=== PATIENT | male | born 1990 | race Caucasian/White ===

== ENCOUNTER 2017-09-21 13:12 | Emergency (ER) | payer SELFPAY ==
[~2017-09-21] VITALS: Ht 180.3 cm; Wt 68.0 kg
[2017-09-21 13:14] VITALS: BP 118/71; PULSE 70; RESP 18; TEMP 98.5; O2SAT 100
[2017-09-21] MEDS ORDERED: MAGICADU2 SWISH-SPIT (13:31)
[2017-09-21] MEDS ORDERED: PENI500T PO (13:31)
[2017-09-21] MEDS ORDERED: IBUP1TAB7 PO (13:32)
--- NOTE | 2017-09-21 13:36 | PD ---
HPI Chief Complaint: Oral / Dental Pain or Problem Time Seen by Provider: 13:27 Travel History International Travel<30 days: No Contact w/Intl Traveler<30days: No Traveled to known affect area: No History of Present Illness HPI 27-year-old male presents for evaluation of dental pain. Symptoms are yesterday. Pain is a throbbing pain which is constant, localized to left maxillary first premolar, worse when chewing, unrelieved with salt water gargles. He reports that he has had issues with all of his teeth for quite some time. In the past he has seen a dentist and told that he required all of his teeth to be extracted and that he would need dentures Albin he cannot afford the surgery. His pain is exacerbated after yesterday biting into a fork accidentally and part of his decayed tooth broke off. He has no other complaints at this time. PFSH Past Medical History Medical History: Denies Significant Hx Tetanus Vaccination: Unknown Past Surgical History Surgical History: No Previous Surgery Social History Alcohol Use: No Tobacco Use: No Substance Use: No Allergies-Medications (Allergen,Severity, Reaction): Coded Allergies: Sulfa (Sulfonamide Antibiotics) (Verified Allergy, Unknown, 09/21/17) Reported Meds & Prescriptions Reported Meds & Active Scripts Active Ibuprofen 800 Mg Tab 800 Mg PO Q6HR PRN Magic Mouthwash Adult Liq (Multi-Ingredient Mouthwash/Gargle) 120 Ml Susp 10 Ml SWISH-SPIT ACHS Each 5mL contains: Nystatin 200,000units, Diphenhydramine 4.25mg, Viscous Lidocaine 10mg, Ray syrup 0.8 mL Penicillin V Potassium 500 Mg Tab 500 Mg PO Q8H 10 Days Review of Systems General / Constitutional: No: Fever, Chills HENT: Positive: Dental Difficulties Physical Exam Narrative GENERAL: Well-developed well-nourished male in no acute distress SKIN: Warm and dry. HEAD: Atraumatic. Normocephalic. EYES: Pupils equal and round. No scleral icterus. No injection or drainage. ENT: No nasal bleeding or discharge. Mucous membranes pink and moist. All of the patient's teeth are in advanced stages of decay. There is no trismus, no gingival edema, no sublingual edema, no facial edema. NECK: Trachea midline. No JVD. No lymphadenopathy CARDIOVASCULAR: Regular rate and rhythm. No murmur appreciated. RESPIRATORY: No accessory muscle use. Clear to auscultation. Breath sounds equal bilaterally. Data Data Last Documented VS Vital Signs Date Time Temp Pulse Resp B/P (MAP) Pulse Ox O2 Delivery O2 Flow Rate FiO2 09/21/17 13:14 98.5 70 18 118/71 (87) 100 Room Air Orders Orders Ed Discharge Order (09/21/17 13:33) MDM Medical Decision Making Medical Screen Exam Complete: Yes Emergency Medical Condition: Yes Medical Record Reviewed: Yes Differential Diagnosis Dental caries, pulpitis, pericoronitis, periodontal abscess, dental fracture Narrative Course The patient has advanced decay in all of his teeth and ultimately require tooth extraction. He understands that this is the definitive treatment. In the meantime the patient will be discharged with a short course of analgesics and antibiotics. Diagnosis Primary Impression: Dental caries Additional Instructions: Medication as prescribed. Follow up with a dentist for definitive therapy. Return for any emergent medical conditions. Med/Other Pt SpecificInfo: Prescription(s) given Scripts Ibuprofen (Ibuprofen) 800 Mg Tab 800 MG PO Q6HR Y for PAIN, #40 TAB 0 Refills Prov: Dean De Leon MD 09/21/17 Jqunyuak-Xzfmjgynxybjgxv-Wcjrvcaob Liq (Magic Mouthwash Adult Liq) 120 Ml Susp 10 ML SWISH-SPIT ACHS for Mouth sores, #120 ML 1 Refill Each 5mL contains: Nystatin 200,000units, Diphenhydramine 4.25mg, Viscous Lidocaine 10mg, Ray syrup 0.8 mL Prov: Dean De Leon MD 09/21/17 Penicillin V Potassium (Penicillin V Potassium) 500 Mg Tab 500 MG PO Q8H for Infection for 10 Days, #30 TAB 0 Refills Prov: Dean De Leon MD 09/21/17 Disposition: 01 DISCHARGE HOME Condition: Stable Johnnie Fields Sep 21, 2017 13:36
== END 2017-09-21 14:27 | disposition home or self-care (01) ==
LOC: NEPK 13:12
DX: K02.9 Dental caries, unspecified (principal); Z88.2 Allergy status to sulfonamides
CPT/HCPCS: 99283

== ENCOUNTER 2017-11-23 16:39 | Emergency (ER) | payer SELFPAY ==
[~2017-11-23] VITALS: Ht 180.3 cm; Wt 78.0 kg
[~2017-11-23 16:39] MED LIST: IBUP1TAB7 PO; MAGICADU2 SWISH-SPIT; PENI500T PO
[2017-11-23 16:48] VITALS: BP 129/65; PULSE 66; RESP 14; TEMP 97.8; O2SAT 100
[2017-11-23 19:11] VITALS: BP 130/68; PULSE 82; RESP 20; TEMP 98; O2SAT 98
[2017-11-23] MEDS ORDERED: DEXAMETHASONE SOD PHOS 20 MG/5 ML VIAL IM ONE (19:15)
[2017-11-23] MEDS ORDERED: CLINDAMYCIN 150 MG CAP PO ONE (19:15)
[2017-11-23] MEDS ORDERED: ACETAMINOPHEN/HYDROcodone 325 MG/5 MG TAB PO ONE (19:15)
[2017-11-23] MEDS ORDERED: IBUP1TAB7 PO (19:17)
[2017-11-23] MEDS ORDERED: PERI0.126 SWISH-SPIT (19:17)
[2017-11-23] MEDS ORDERED: TRAM50 PO (19:17)
[2017-11-23] MEDS ORDERED: CLIN150C14 PO (19:17)
--- NOTE | 2017-11-23 19:19 | PD ---
HPI Chief Complaint: Oral / Dental Pain or Problem Time Seen by Provider: 19:05 Travel History International Travel<30 days: No Contact w/Intl Traveler<30days: No Traveled to known affect area: No History of Present Illness HPI 27-year-old male with no significant medical history presents emergency department for evaluation of dental pain with associated facial swelling. Patient states he had a "bad tooth" break yesterday. He noticed some mild facial swelling but it has progressed throughout the day today. He denies any fever or chills. Reports significant pain at the site. No drainage. Patient is up-to-date on his tetanus vaccination. He has no other symptoms to report at this time. PFSH Past Medical History Medical History: Denies Significant Hx Diminished Hearing: No Tetanus Vaccination: < 5 Years Influenza Vaccination: No Past Surgical History Other Surgery: Yes (lymph nodes surgery as a kid) Social History Alcohol Use: No Tobacco Use: No Substance Use: No Allergies-Medications (Allergen,Severity, Reaction): Coded Allergies: Sulfa (Sulfonamide Antibiotics) (Verified Allergy, Unknown, 11/23/17) Reported Meds & Prescriptions Reported Meds & Active Scripts Active No Active Prescriptions or Reported Medications Review of Systems Except as stated in HPI: all other systems reviewed are Neg Physical Exam Narrative GENERAL: Well-nourished, well-developed male patient, in no acute distress. SKIN: Focused skin assessment warm/dry. HEAD: Normocephalic. Facial swelling along the left maxillary sinus. No erythema. No induration. No fluctuation. EYES: No scleral icterus. No injection or drainage. ENT: Mucosa pink and moist. No erythema or exudates. No uvular edema. No uvular , palatal, or tonsillar deviation. Airway patent. Nasal turbinates appear normal without nasal blood, purulent drainage or septal hematoma. DENTAL: General has poor dentition. The maxillary left lateral incisor and second bicuspid are completely decayed to the gingiva with surrounding gingival erythema and edema. No appreciable abscess. No malocclusion. NECK: Supple, trachea midline. No JVD or lymphadenopathy. CARDIOVASCULAR: Regular rate and rhythm without murmurs, gallops, or rubs. RESPIRATORY: Breath sounds equal bilaterally. No accessory muscle use. Data Data Last Documented VS Vital Signs Date Time Temp Pulse Resp B/P (MAP) Pulse Ox O2 Delivery O2 Flow Rate FiO2 11/23/17 19:11 98.0 82 20 130/68 (88) 98 Room Air Orders Orders Clindamycin (Cleocin) (11/23/17 19:15) Dexamethasone Inj (Decadron Inj) (11/23/17 19:15) Acetamin-Hydrocod 325-5 Mg ([place] 5-325 (11/23/17 19:15) MDM Medical Decision Making Medical Screen Exam Complete: Yes Emergency Medical Condition: Yes Medical Record Reviewed: Yes Differential Diagnosis Dental abscess versus gingivitis versus pulpitis versus dental carry versus periodontal disease Narrative Course 27-year-old male presents emergency department for evaluation of a broken tooth with associated facial swelling. Patient does have generalized poor dentition with several dental caries. Facial swelling is adjacent to his left maxillary second bicuspid that is decayed down to the gingiva. I do not see an abscess to drain at this time. Patient is given clindamycin, Decadron, pain control here in the emergency department. He will be discharged home on oral antibiotics. I have advised follow-up with a dentist. He agrees to return immediately with any acute worsening symptoms. Diagnosis Primary Impression: Dental caries Additional Impression: Facial edema Referrals: Dentist Primary Care Physician Patient Instructions: Dental Caries (ED), General Instructions Additional Instructions: Do not push or squeeze the area Follow-up with a dentist as soon as possible. Follow-up with a primary care provider Return immediately with any acute worsening symptoms Med/Other Pt SpecificInfo: Prescription(s) given Scripts Tramadol (Ultram) 50 Mg Tab 50 MG PO Q8H Y for PAIN GREATER THAN 6, #15 TAB 0 Refills Prov: Zahida Maya 11/23/17 Ibuprofen (Ibuprofen) 800 Mg Tab 800 MG PO Q8H Y for Pain/Inflammation, #30 TAB 0 Refills Prov: Zahida Maya 11/23/17 Chlorhexidine Gluconate (Mouth) Liq (Peridex Liq) 0.12% Soln 15 ML SWISH-SPIT BID, #473 ML 0 Refills Prov: Zahida Maya 11/23/17 Clindamycin (Clindamycin) 150 Mg Cap 300 MG PO Q6H for Infection for 10 Days, #80 CAP 0 Refills Prov: Zahida Maya 4/5/18 Disposition: 01 DISCHARGE HOME Condition: Stable Maya,Zahida [employer] WELT Nov 23, 2017 19:19
== END 2017-11-23 19:30 | disposition home or self-care (01) ==
LOC: NEPD 16:39
DX: K02.9 Dental caries, unspecified (principal); R60.0 Localized edema
CPT/HCPCS: 96372; 99283; J1100